=== PATIENT | male | born 1950 | race Caucasian/White ===

== ENCOUNTER 2018-02-11 14:07 | Emergency (ER) | payer MEDICAID, MEDICARE ==
[~2018-02-11] VITALS: Ht 185.4 cm; Wt 75.3 kg
--- NOTE | 2018-02-11 14:20 | NUR ---
PT A/O X3. SMELLS OF ETOH. C/C OF R SIDED HEAD PAIN. PT STATES, "I TRIPPED AND FELL." NEG TRAUMA NOTED. PT STABLE CONDITION. VSS. NEG SIGNS OF STROKE. NEG ACUTE DISTRESS. STABLE CONDITION. SAFETY MEASURES IN PLACE.
[2018-02-11 14:45] LABS: BASOPHILS % (AUTO) 0.5 % (0.0-2.0); EOSINOPHILS % (AUTO) 3.6 % (0.0-6.0); HEMATOCRIT 41 % (39-51); HEMOGLOBIN 13.8 g/dL (13.5-17.5); LYMPHOCYTES # (AUTO) 1.2 /CMM (0.8-4.8); LYMPHOCYTES % (AUTO) 23.4 % (20.0-44.0); MEAN CORPUSCULAR HGB CONC 34 g/dl (31.0-36.0); MEAN CORPUSCULAR VOLUME 95 fL (80-96); MONOCYTES # (AUTO) 0.6 /CMM (0.1-1.30); MONOCYTES % (AUTO) 11.1 % (2.0-12.0); NEUTROPHILS # (AUTO) 3.2 /CMM (1.8-8.9); NEUTROPHILS % (AUTO) 61.4 % (43.0-81.0); PLATELET COUNT (AUTO) 306 /CMM (150-450); RDW COEFFICIENT OF VARIATION 14.3 (11.5-15.0); WHITE BLOOD COUNT (AUTO) 5.2 K/uL (4.3-11.0)
[2018-02-11 14:55] LABS: CALCIUM, SERUM 9.2 mg/dL (8.5-10.1); CREATININE 0.6 mg/dL (0.6-1.3); POTASSIUM 4.2 mmol/L (3.5-5.1)
--- NOTE | 2018-02-11 15:47 | NUR ---
CALLED FOR FOOD TRAY
[2018-02-11 16:30] VITALS: BP 134/86
== END 2018-02-11 16:31 | disposition home or self-care (01) ==
LOC: ER 14:12
DX: R51 Headache (principal); R53.1 Weakness; F10.10 Alcohol abuse, uncomplicated; F17.200 Nicotine dependence, unspecified, uncomplicated; Z59.0 Homelessness; Y90.9 Presence of alcohol in blood, level not specified; W19.XXXA Unspecified fall, initial encounter; Y93.89 Activity, other specified; Y92.89 Other specified places as the place of occurrence of the external cause; Y99.8 Other external cause status
CPT/HCPCS: 36415; 70450-TC; 80048-TC; 84484-TC; 85025-TC; A4606; Z7610